=== PATIENT | male | born 1980 | race African-American/Black ===

== ENCOUNTER 2018-01-20 06:22 | Emergency (ER) | payer MEDICAID ==
[~2018-01-20] VITALS: Ht 193 cm; Wt 81.6 kg
[2018-01-20] MEDS ORDERED: cloNIDine HCL 0.1 MG TAB ONE (06:29)
[2018-01-20] MEDS ORDERED: cloNIDine HCL 0.1 MG TAB PO ONE (06:45)
[2018-01-20] MEDS ORDERED: KETOROLAC TROMETH 60MG/2ML VIAL IM ONE (08:15)
[2018-01-20 08:16] VITALS: BP 144/103
== END 2018-01-20 08:38 | disposition home or self-care (01) ==
LOC: ER 06:22
DX: G43.909 Migraine, unspecified, not intractable, without status migrainosus (principal); F17.210 Nicotine dependence, cigarettes, uncomplicated
CPT/HCPCS: 96372; 99283; J1885

== ENCOUNTER 2019-04-22 08:49 | Inpatient (IN) | payer SELFPAY ==
[~2019-04-22] VITALS: Ht 193 cm; Wt 81.0 kg
[2019-04-22 09:35] LABS: Urine Blood Negative /uL (Negative); Urine WBC <1 /hpf (0 - 3)
[2019-04-22 09:36] LABS: Urine Bacteria NONE SEEN /hpf (None Seen); Urine Mucus FEW (None Seen)
[2019-04-22 09:42] LABS: Basophils # (auto) 0 uL; Basophils % (auto) 0.5 % (0.0-2.0); Eosinophils # (auto) 0 uL; Eosinophils % (auto) 0.2 % (0.0-7.0); Hematocrit 39.7 % (41.0-53.0); Hemoglobin 13.5 g/dL (13.5-17.5); Lymphocytes # (auto) 0.3 uL; Lymphocytes % (auto) 4.7 % (10.0-50.0); Mean Corpuscular Hemoglobin 32.6 pg (28.0-32.0); Mean Corpuscular Volume 95.8 fL (80.0-100.0); Monocytes # (auto) 0.8 uL; Monocytes % (auto) 10.8 % (0.0-12.0); Neutrophils # (auto) 6.1 uL; Neutrophils % (auto) 83.8 % (37.0-80.0); Nucleated Red Blood Cells % 0.1 %; Platelet Count (auto) 279 10^3/uL (140-450); Red Blood Cells 4.14 10^6/uL (4.5-5.90); Red Cell Distribution Width 14.2 % (11.8-14.3); White Blood Cell 7.3 10^3/uL (4.4-10.8)
[2019-04-22 11:37] LABS: Albumin 3.8 g/dL (3.4-5.0); Calcium 9.1 mg/dL (8.5-10.1); Potassium 3.9 mmol/L (3.5-5.1)
[2019-04-22 11:43] LABS: BUN/Creatinine Ratio 11.4; Bilirubin, Total 0.3 mg/dL (0.2-1.0); Total Protein 7.7 g/dL (6.4-8.2)
[2019-04-22] MEDS ORDERED: PANTOPRAZOLE 40 MG/10 ML VIAL INJ IV ONE (12:30)
[2019-04-22] MEDS ORDERED: ONDANSETRON HCL 4 MG/2 ML VIAL IV ONE (12:30)
[2019-04-22] MEDS ORDERED: SODIUM CHLORIDE 0.9% 1,000 ML IV ONE (12:30)
[2019-04-22] MEDS ORDERED: MORPHINE SULF INJ 2 MG/ML SYRINGE 1ML IV ONE (13:00)
[2019-04-22] MEDS ORDERED: NITROGLYCERIN 0.4 MG SL TAB SL PRN (14:30)
[2019-04-22] MEDS ORDERED: MORPHINE SULF INJ 2 MG/ML SYRINGE 1ML IV PRN (14:30)
[2019-04-22] MEDS ORDERED: ONDANSETRON HCL 4 MG/2 ML VIAL IV PRN (14:30)
[2019-04-22] MEDS: D5W/SOD CHLO 0.9% 1,000 ML IV SCH (15:16)
[2019-04-22] MEDS: MORPHINE SULF INJ 2 MG/ML SYRINGE 1ML IV PRN ×2 (17:28→21:27)
[2019-04-22 19:44] VITALS: BP 143/100
--- NOTE | 2019-04-22 19:44 | NUR ---
Telemetry admit from PADMINI PELAEZ admitted to Telemetry unit. Patient oriented to JUAN DIEGO AHUJA RN primary RN, unit, room, bed, and unit policies regarding patient care and visiting hours. Patient now on continuous telemetry monitoring, tele box # [id number] and telemetry reading on arrival to unit is sinus rhythm. Patient weighed by bedscale and encouraged to call if they need something. Bed in lowest locked position, side rails up x2, call light within reach. Crystal at bedside on admission. All questions and concerns addressed, patient and verbalized understanding. Will round every hour and as needed and continue to monitor.
[2019-04-22] MEDS: PANTOPRAZOLE 40 MG/10 ML VIAL INJ IV SCH (21:27)
[2019-04-22 22:21] VITALS: BP 143/100
[2019-04-23] MEDS: D5W/SOD CHLO 0.9% 1,000 ML IV SCH ×2 (00:53→10:00)
[2019-04-23] MEDS: MORPHINE SULF INJ 2 MG/ML SYRINGE 1ML IV PRN (04:17)
--- NOTE | 2019-04-23 05:00 | NUR ---
Temperature 100.0 Fahrenheit orally. Blankets removed and ice water provided. Patient denies s/s of hyperthermia. Will continue to monitor.
[2019-04-23 05:28] LABS: Basophils # (auto) 0 uL; Basophils % (auto) 0.8 % (0.0-2.0); Eosinophils # (auto) 0 uL; Eosinophils % (auto) 0.1 % (0.0-7.0); Hematocrit 38.5 % (41.0-53.0); Lymphocytes # (auto) 0.4 uL; Lymphocytes % (auto) 7.9 % (10.0-50.0); Mean Corpuscular Hemoglobin 32.4 pg (28.0-32.0); Mean Corpuscular Hgb Conc. 33.9 g/dL (32.0-36.0); Mean Corpuscular Volume 95.6 fL (80.0-100.0); Monocytes # (auto) 0.7 uL; Monocytes % (auto) 13.1 % (0.0-12.0); Neutrophils # (auto) 4.1 uL; Neutrophils % (auto) 78.1 % (37.0-80.0); Nucleated Red Blood Cells % 0.1 %; Platelet Count (auto) 231 10^3/uL (140-450); Red Blood Cells 4.03 10^6/uL (4.5-5.90); Red Cell Distribution Width 14.5 % (11.8-14.3); White Blood Cell 5.2 10^3/uL (4.4-10.8)
[2019-04-23 05:29] VITALS: BP 141/105
--- NOTE | 2019-04-23 05:50 | NUR ---
Temperature 98.8 Fahrenheit orally. Will continue care.
--- NOTE | 2019-04-23 06:52 | NUR ---
Closing Note Patient lying in bed, eyes closed, respirations even and unlabored, appears asleep. No s/s of distress. Will endorse care to dayshift RN.
--- NOTE | 2019-04-23 07:30 | NUR ---
Opening Shift Note RECEIVED REPORT FROM NOC RN. Assumed care of patient, awake and alert. No S/S of distress/SOB or pain. BED IN LOWEST, LOCKED POSITION WITH SIDERAILS UP x2 AND CALL LIGHT WITHIN REACH. Instructed on POC and to call for assist PRN, will continue to monitor for changes Q1hr and PRN.
[2019-04-23 09:00] VITALS: BP 149/95
[2019-04-23] MEDS: PANTOPRAZOLE 40 MG/10 ML VIAL INJ IV SCH (09:56)
[2019-04-23] MEDS ORDERED: PSEUSYP56 OR (10:24)
[2019-04-23] MEDS ORDERED: AZIT500T66 PO (10:24)
[2019-04-23] MEDS ORDERED: PANT40TA2 PO (10:24)
[2019-04-23 11:15] VITALS: BP 149/95
== END 2019-04-23 11:39 | disposition home or self-care (01) | DRG 202 ==
LOC: ER 08:49 → TELE 08:50 → TELE-WESTW 19:59
PROVIDERS: ADMIT Nurse Practitioner Acute Care; ATTEND Nurse Practitioner Acute Care
DX: J20.9 Acute bronchitis, unspecified (principal); R04.2 Hemoptysis; D64.9 Anemia, unspecified; F17.210 Nicotine dependence, cigarettes, uncomplicated; N20.0 Calculus of kidney; R79.89 Other specified abnormal findings of blood chemistry; Z80.0 Family history of malignant neoplasm of digestive organs; Z82.49 Family history of ischemic heart disease and other diseases of the circulatory system
CPT/HCPCS: 36415; 71045; 74176; 80053; 81001; 82378; 83615; 83690; 83735; 85025; C9113; G0378; J2405

== ENCOUNTER 2019-09-02 12:29 | Emergency (ER) | payer MEDICAID, OTHER ==
[~2019-09-02] VITALS: Ht 193 cm; Wt 70.8 kg
[~2019-09-02 12:29] MED LIST: AZIT500T66 PO; PANT40TA2 PO; PSEUSYP56 OR
[2019-09-02 13:02] LABS: Urine Bacteria NONE SEEN /hpf (None Seen); Urine Blood Negative /uL (Negative); Urine Mucus FEW (None Seen); Urine Specific Gravity 1.022 (1.001-1.035); Urine WBC 1 /hpf (0 - 3)
[2019-09-02 13:14] LABS: Alcohol, Urine < 3.0 mg/dL (0-10); Amphetamine Screen, Urine NEGATIVE (NEGATIVE); Barbiturate Scree,Urine NEGATIVE (NEGATIVE); Benzodiazephine Screen, Urine NEGATIVE (NEGATIVE); Cannabinoid Screen, Urine POSITIVE (NEGATIVE); Cocaine Screen, Urine NEGATIVE (NEGATIVE); Opiate Scree,Urine NEGATIVE (NEGATIVE); Phencyclidine Screen, Urine NEGATIVE (NEGATIVE)
[2019-09-02 13:53] VITALS: BP 143/107
[2019-09-02 14:04] LABS: Basophils # (auto) 0 10 ^3/uL (0-0.2); Basophils % (auto) 0.4 % (0.0-2.0); Eosinophils # (auto) 0 10 ^3/uL (0-0.8); Eosinophils % (auto) 0.8 % (0.0-7.0); Hematocrit 42.2 % (41.0-53.0); Hemoglobin 14.3 g/dL (13.5-17.5); Lymphocytes # (auto) 1.7 10 ^3/uL (0.4-5.4); Lymphocytes % (auto) 28.5 % (10.0-50.0); Mean Corpuscular Hemoglobin 32.7 pg (28.0-32.0); Mean Corpuscular Hgb Conc. 33.9 g/dL (32.0-36.0); Mean Corpuscular Volume 96.5 fL (80.0-100.0); Monocytes # (auto) 0.7 10 ^3/uL (0-1.3); Monocytes % (auto) 12.6 % (0.0-12.0); Neutrophils # (auto) 3.4 10 ^3/uL (1.6-8.6); Neutrophils % (auto) 57.7 % (37.0-80.0); Nucleated Red Blood Cells % 0.1 %; Platelet Count (auto) 276 10^3/uL (140-450); Red Blood Cells 4.38 10^6/uL (4.5-5.90); White Blood Cell 5.8 10^3/uL (4.4-10.8)
[2019-09-02 14:18] LABS: Calcium 8.6 mg/dL (8.5-10.1); Potassium 3.5 mmol/L (3.5-5.1)
[2019-09-02 14:22] LABS: Bilirubin, Total 0.8 mg/dL (0.2-1.0); Total Protein 7.8 g/dL (6.4-8.2)
[2019-09-02 14:52] LABS: BUN/Creatinine Ratio 15.5
== END 2019-09-02 16:02 | disposition home or self-care (01) ==
LOC: ER 12:29
DX: N20.0 Calculus of kidney (principal); K58.0 Irritable bowel syndrome with diarrhea; B71.9 Cestode infection, unspecified; K76.0 Fatty (change of) liver, not elsewhere classified; F17.210 Nicotine dependence, cigarettes, uncomplicated
CPT/HCPCS: 36415; 74176; 80053; 80307; 81001; 83690; 85025

== ENCOUNTER 2020-06-04 20:49 | Emergency (ER) | payer BC, OTHER ==
[~2020-06-04] VITALS: Ht 193 cm; Wt 72.6 kg
[2020-06-04 20:58] VITALS: BP 142/109
== END 2020-06-04 22:20 | disposition left against medical advice (07) ==
LOC: ER 20:49
DX: M54.5 Low back pain (principal); R10.9 Unspecified abdominal pain; R31.9 Hematuria, unspecified; Z53.21 Procedure and treatment not carried out due to patient leaving prior to being seen by health care provider
CPT/HCPCS: 74176

== ENCOUNTER 2022-11-16 21:08 | Emergency (ER) | payer OTHER ==
[~2022-11-16] VITALS: Ht 190.5 cm; Wt 64.0 kg
[2022-11-16 21:09] VITALS: BP 134/94; PULSE 106; RESP 18; O2SAT 99
== END 2022-11-16 22:47 | disposition left against medical advice (07) ==
LOC: ER 21:12
DX: R20.0 Anesthesia of skin (principal); R22.0 Localized swelling, mass and lump, head; Z53.21 Procedure and treatment not carried out due to patient leaving prior to being seen by health care provider